=== PATIENT | male | born 2000 | race Hispanic/Latino ===

== ENCOUNTER 2021-01-16 20:46 | Emergency (ER) | payer SELFPAY ==
[2021-01-16 20:48] VITALS: BP 124/85; PULSE 69; RESP 16; TEMP 36.9; O2SAT 99; BMI 20.2
--- NOTE | 2021-01-16 22:45 | ED.VIS.GI ---
HPI HPI - GI History of Present Illness Chief Complaint: Abd Pain Narrative Narrative: Patient presented with epigastric pain and dyspepsia. Patient states this has been a problem for the last few days. He was seen at [facility] last evening and had blood work and imaging done. He had a slightly elevated white blood cell count of 13,000. He had a negative CAT scan except for concern for colitis. Patient was started on Flagyl, Zofran, Bentyl. He states he has not had an significant improvement today. Patient does not have any lower abdominal pain. He is not having any diarrhea, constipation, dysuria, hematuria. Has not had a fever or chills. Patient has no medical problems in the past. Patient does states eating Monegasque food, pizza, spaghetti, drinks a lot of pop. Patient's family member does state that he has a history of GERD when he was younger. PFSH PFSH Home Medications albuterol sulfate [Ventolin Hfa] 1 - 2 puff INHALATION Q6H PRN PRN 03/22/14 [History Last Taken Unknown] penicillin V potassium 500 mg PO 4X/DAY #20 tab 03/22/14 [Rx Last Taken Unknown] omeprazole 40 mg PO DAILY #30 cap 01/16/21 [Rx Last Taken Unknown] Allergy/AdvReac Type Severity Reaction Status Date / Time No Known Allergies Allergy Verified 03/22/14 17:54 Social History Smoking Status: Never smoker ROS ROS ED Constitutional Constitutional ED: Denies chills or fever(s) ENT ENT ED: Denies rhinorrhea or sore throat Cardiovascular Cardiovascular: Denies chest pain or palpitations Respiratory/Chest Respiratory/Chest: Denies cough, dyspnea or sputum Gastrointestinal Gastrointestinal: Reports abdominal pain, nausea and vomiting; Denies constipation or diarrhea Genitourinary Genitourinary ED: Denies dysuria or hematuria Musculoskeletal Musculoskeletal: Denies arthralgias, myalgias or neck pain Integumentary Denies Abrasions or rash Neurologic Neurologic: Denies headache(s) or paresthesias Psychiatric Psychiatric: Denies anxiety or depression EXAM Physical Exam Const Vital Signs: 01/16/21 20:48 Temperature 98.4 F Temperature Source Temporal Pulse Rate 69 Respiratory Rate 16 Blood Pressure 124/85 H Blood Pressure Mean 98 Pulse Ox 99 Oxygen Delivery Method Room Air Positive well nourished General Appearance ED: NAD; Negative for pallor HEENT Reports moist mucous membranes normocephalic and atraumatic Eyes PERRL and EOMs intact bilaterally Resp normal respiratory effort and clear to auscultation bilaterally Cardio regular rate and regular rhythm GI non-distended GI Narrative: Mild epigastric tenderness. No right upper quadrant tenderness. Palpation: soft Neuro Sensorium / Orientation: alert, oriented to person and oriented to place Psych mental status grossly normal and thought process normal Skin General Skin Exam: Negative for jaundice or pallor Rashes: no rashes MDM MDM MDM Narrative Medical decision making narrative: Patient presenting with classic symptoms of GERD and he eats Monegasque food, spaghetti, pizza, drinks a lot of pop. He had a work-up last evening at [facility] and they told him he had colitis and started him on Flagyl, Bentyl, Zofran. He states that this is not helping. He will be given a GI cocktail here today to be started on a PPI. He is counseled that he may need to change his diet. I do not believe patient needs repeat lab work or imaging. Patient was counseled to establish with a primary care that he may need referral to GI if his symptoms continue. He is given return precautions. Patient stable discharge at this time. Impression: #1 dyspepsia Discharge Plan Triage Chief Complaint: Abd Pain ED Provider: Ghulam Ferrari Dx/Rx/DC Orders Instructions: ED GERD (Adult) Prescriptions: New omeprazole 40 mg capsule,delayed release(DR/EC) 40 mg PO DAILY Qty: 30 RF: 0 No Action albuterol sulfate [Ventolin HFA] 1 INHALER inhaler 1 - 2 puff inhalation Q6H PRN PRN (Reason: Asthma) RF: 0 penicillin V potassium 500 MG tablet 500 mg PO 4X/DAY Qty: 20 RF: 0 Primary Care Provider: Care Physician,No Primary Referrals: Care Physician,No Primary [Primary Care Provider] - Disposition Disposition: Home, Self Care
[2021-01-16] MEDS: Mag Hydrox/Al Hydrox/Simeth 30 ML UDC PO (23:35)
== END 2021-01-16 23:55 | disposition home or self-care (01) ==
PROVIDERS: Emergency Provider Student in an Organized Health Care Education/Training Program
DX: R10.13 Epigastric pain (principal)
CPT/HCPCS: 99283